=== PATIENT | female | born 1965 | race Caucasian/White ===

== ENCOUNTER 2021-04-29 13:43 | Emergency (ER) | payer BC ==
[~2021-04-29 13:43] MED LIST: SYNTHROID125 MCG PO
[2021-04-29 14:56] LABS: HEMOGLOBIN 16.6 gm/dl (12.3-15.3); RED BLOOD COUNT 5.49 M/UL (4.00-5.10); WHITE BLOOD COUNT 9.1 K/UL (4.5-11.0)
[2021-04-29 15:24] LABS: BUN/CREATININE RATIO 24 (0-10)
== END 2021-04-29 17:50 | disposition home or self-care (01) ==
LOC: ER1 13:43
PROVIDERS: Family Medicine
DX: I63.9 Cerebral infarction, unspecified (principal); E11.65 Type 2 diabetes mellitus with hyperglycemia; F41.9 Anxiety disorder, unspecified; H53.9 Unspecified visual disturbance; Z79.4 Long term (current) use of insulin; Z88.8 Allergy status to other drugs, medicaments and biological substances; Z79.82 Long term (current) use of aspirin; Z79.899 Other long term (current) drug therapy
CPT/HCPCS: 70450; 80053; 82550; 82553; 83874; 84484; 85025; 93005; 99285